=== PATIENT | male | born 1980 | race Two or more races ===

== ENCOUNTER 2020-08-08 13:47 | Emergency (ER) | payer OTHER ==
[~2020-08-08] VITALS: Ht 172.7 cm; Wt 95.0 kg
[2020-08-08] MEDS ORDERED: KETOROLAC 30MG/ML VIAL IV ONE (15:45)
[2020-08-08] MEDS ORDERED: TETANUS, DIPHTHERIA, PERTUSSIS VAC/PF 0.5ML (>7YR OLD) IM ONE (15:45)
[2020-08-08] MEDS ORDERED: CEFTRIAXONE 1 G PREMIX 50 ML IV NR (16:00)
[2020-08-08] MEDS ORDERED: BACITRACIN ZINC OINT UDPKT TOP ONE (17:30)
[2020-08-08] MEDS ORDERED: HYDROCODONE/ACETAMINOPHEN 5/325MG TABLET PO STA (19:41)
[2020-08-08 21:29] VITALS: BP 121/81
== END 2020-08-08 21:31 | disposition home or self-care (01) ==
LOC: ER 13:47
DX: S68.113A Complete traumatic metacarpophalangeal amputation of left middle finger, initial encounter (principal); W19.XXXA Unspecified fall, initial encounter; Y93.89 Activity, other specified; Y92.89 Other specified places as the place of occurrence of the external cause; Y99.8 Other external cause status
CPT/HCPCS: 73130; 90471; 90715; 96365; 96375; 99284; J0696; J1885